=== PATIENT | female | born 1995 | race Hispanic/Latino ===

== ENCOUNTER 2018-06-06 00:37 | Emergency (ER) | payer BC | END 2018-06-06 02:52 | disposition home or self-care (01) | LOC: ERS 00:37 | DX: H60.91 Unspecified otitis externa, right ear (principal); F41.9 Anxiety disorder, unspecified | CPT/HCPCS: 99283 ==

== ENCOUNTER 2020-04-02 20:11 | Emergency (ER) | payer BC, SELFPAY ==
[2020-04-02] MEDS ORDERED: Acetaminophen 500 MG TAB ONE (20:27)
[2020-04-02] MEDS ORDERED: Ondansetron PF 4 MG/2 ML Vial ONE (20:27)
[2020-04-02] MEDS ORDERED: Acetaminophen 325 MG/10.15 ML UDCUP ONE (20:48)
[2020-04-02 20:49] LABS: #Basophils 0.1 thou/uL (0.0-0.2); #Eosinphils 0.1 thou/uL (0.0-0.7); #Lymphocytes 3.2 thou/uL (1.20-3.40); #Monocytes 0.9 thou/uL (0.11-0.59); #Neutrophils 9.4 thou/uL (1.40-6.50); %Basophils 0.5 % (0.0-1.0); %Eosinophils 0.5 % (0.0-10.0); %Lymphocytes 23.2 % (21.0-51.0); %Monocytes 6.6 % (0.0-10.0); %Neutrophils 69.2 % (42.0-75.0); Hemoglobin 13.2 g/dL (12.0-16.0); Mean Corpuscular HGB CONC 32.7 g/dL (32.0-36.0); Mean Corpuscular Hemoglobin 27.3 pg (27.0-31.0); Mean Corpuscular Volume 83.3 fL (78.0-98.0); Platelet Count 320 thou/uL (130-400); Red Blood Cell (RBC) Count 4.83 mill/uL (4.20-5.40); White Blood Cell (WBC) Count 13.6 thou/uL (4.8-10.8)
[2020-04-02 21:17] LABS: ALT (SGPT) 14 U/L (8-55); AST (SGOT) 25 U/L (5-34); Albumin 4.3 g/dL (3.5-5.0); Alkaline Phosphatase 68 U/L (40-110); Anion Gap 15 mmol/L (10-20); BUN (Urea Nitrogen) 9 mg/dL (7.0-18.7); Bilirubin, Total 0.4 mg/dL (0.2-1.2); Calc. Creatinine Clearance 0 mL/min (70-130); Calcium 9.1 mg/dL (7.8-10.44); Carbon Dioxide 20 mmol/L (22-29); Chloride 106 mmol/L (98-107); Estimated GFR-MDRD 77; Globulin 4.2 g/dL (2.4-3.5); Glucose 93 mg/dL (70-105); Potassium 4.3 mmol/L (3.5-5.1); Protein, Total 8.5 g/dL (6.0-8.3); Sodium 137 mmol/L (136-145)
[2020-04-02 22:26] LABS: Bilirubin Negative (Negative); Blood, Urine Trace (Negative); Glucose, Urine (Dipstick) Negative (Negative); Leukocyte Small (Negative); Nitrite Negative (Negative); Protein, Urine (Dipstick) Negative (Neg-Trace); Urobilinogen 0.2 mg/dL (Less than 2)
[2020-04-02 22:30] LABS: Clarity Hazy (Clear); RBC/HPF 0-3 HPF (0-3); Squamous Epithelial 0-3 HPF (0-3)
[2020-04-02 22:31] LABS: Bacteria/HPF 2+ HPF (None Seen)
[2020-04-02] MEDS ORDERED: Ketorolac Tromethamine 30 MG/ML VIAL ONE (22:31)
[2020-04-02 22:32] LABS: Pregnancy Test - Urine (BHCG) Negative (Negative); Pregu Control Background? CLEAR/WHITE (CLR/WHITE); Pregu Control Bar Appear? YES (CONTROL BAR); Specific Gravity 1.015 (1.002-1.036)
== END 2020-04-02 23:05 | disposition home or self-care (01) ==
LOC: ERS 20:11
DX: M79.10 Myalgia, unspecified site (principal); G51.0 Bell's palsy; F43.9 Reaction to severe stress, unspecified; F41.9 Anxiety disorder, unspecified; D64.9 Anemia, unspecified; Z79.899 Other long term (current) drug therapy
CPT/HCPCS: 80053; 81003; 81015; 81025; 85025; 96374; J1885; J2405

== ENCOUNTER 2023-04-05 18:28 | Inpatient (IN) | payer OTHER, SELFPAY ==
[2023-04-05] MEDS ORDERED: Boostrix 0.5 ML (Tdap) VIAL (>/=7 yrs of age) ONE (18:55)
[2023-04-05] MEDS ORDERED: Ketorolac Tromethamine 30 MG/ML VIAL ONE ×2 (18:55→20:37)
[2023-04-05] MEDS ORDERED: LORazepam 2 MG/ML SYR.(CARPUJECT) ONE (19:51)
[2023-04-05] MEDS ORDERED: Ondansetron PF 4 MG/2 ML Vial ONE ×2 (19:51→20:37)
[2023-04-05] MEDS ORDERED: CEFAZOLIN 1 GM VIAL ONE (19:51)
[2023-04-05] MEDS ORDERED: Morphine 2 MG/ML VIAL ONE (19:51)
[2023-04-05] MEDS ORDERED: Bupivacaine PF 0.5% 30 ML VIAL ONE (19:54)
[2023-04-05] MEDS ORDERED: Vancomycin 1 GM VIAL ONE (19:54)
[2023-04-05] MEDS ORDERED: Bacitracin Zinc Ointment 30 gm TUBE ONE (19:54)
[2023-04-05] MEDS ORDERED: fentaNYL PF 100 MCG/2 ML SYRINGE ONE (19:56)
[2023-04-05 20:25] LABS: #Monocytes 0.8 thou/uL (0.11-0.59); #Neutrophils 13.5 thou/uL (1.40-6.50); %Basophils 0.2 % (0.0-1.0); %Eosinophils 0.2 % (0.0-10.0); %Lymphocytes 13.3 % (21.0-51.0); %Monocytes 4.9 % (0.0-10.0); %Neutrophils 80.9 % (42.0-75.0); Hemoglobin 13.5 g/dL (12.0-16.0); Mean Corpuscular HGB CONC 32.4 g/dL (32.0-36.0); Mean Corpuscular Hemoglobin 27.4 pg (27.0-31.0); Mean Corpuscular Volume 84.6 fl (78.0-98.0); Mean Platelet Volume 10.1 fL (7.4-10.4); Platelet Count 391 10x3/uL (130-400); RBC Distribution Width 13.4 % (11.5-14.5); Red Blood Cell (RBC) Count 4.93 mill/uL (4.20-5.40); White Blood Cell (WBC) Count 16.7 10x3/uL (4.8-10.8)
[2023-04-05] MEDS ORDERED: Ondansetron PF 4 MG/2 ML Vial IVP PRN (20:35)
[2023-04-05] MEDS ORDERED: Milk Of Magnesia 30 ML UDCUP PO PRN (20:35)
[2023-04-05] MEDS ORDERED: HYDROcodone/Acetaminophen 5/325 mg Tablet PO PRN (20:35)
[2023-04-05] MEDS ORDERED: TETANUS, DIPHTHERIA TOX,ADULT (TDVAX) 0.5 ML VIAL IM ONE (20:35)
[2023-04-05] MEDS ORDERED: Rocuronium Bromide 10 MG/ML (10ML VIAL) ONE (20:37)
[2023-04-05] MEDS ORDERED: PROPOFOL 200 MG/20 ML VIAL ONE (20:37)
[2023-04-05] MEDS ORDERED: Dexamethasone 20 MG/5 ML VIAL ONE (20:37)
[2023-04-05] MEDS ORDERED: Succinylcholine Chloride 100 MG/5 ML SYRINGE FS ONE (20:37)
[2023-04-05 20:38] LABS: PTT 28.8 sec (22.9-36.1); Prothrombin Time 13.3 sec (12.0-14.7)
[2023-04-05] MEDS ORDERED: Meperidine HCl/PF 25 MG/ML VIAL IM PRN (20:41)
[2023-04-05 20:42] LABS: BHCG - Serum Negative (NEGATIVE); Pregs Control Background? CLEAR/WHITE (CLR/WHITE); Pregs Control Bar Appear? YES (CONTROL BAR)
[2023-04-05] MEDS ORDERED: Communication Order-Pharmacy FS PRN (20:45)
[2023-04-05] MEDS ORDERED: fentaNYL 50 mcg/mL 1 mL Vial SLOW IVP PRN (20:47)
[2023-04-05] MEDS ORDERED: Vancomycin 1 GM in Premix Bag 1 BAG IVPB SCH (21:00)
[2023-04-05 21:13] LABS: ALT (SGPT) 15 U/L (8-55); AST (SGOT) 16 U/L (5-34); Albumin 4.5 g/dL (3.5-5.0); Alkaline Phosphatase 68 U/L (40-110); Anion Gap 20 mmol/L (10-20); BUN (Urea Nitrogen) 15 mg/dL (7.0-18.7); Bilirubin, Total 0.3 mg/dL (0.2-1.2); Calc. Creatinine Clearance 0 mL/min (70-130); Calcium 9.6 mg/dL (7.8-10.44); Carbon Dioxide 18 mmol/L (22-29); Chloride 105 mmol/L (98-107); Estimated GFR 60; Glucose 132 mg/dL (70-105); Potassium 3.7 mmol/L (3.5-5.1); Protein, Total 8.5 g/dL (6.0-8.3); Sodium 139 mmol/L (136-145)
[2023-04-05] MEDS ORDERED: fentaNYL 50 mcg/mL 1 mL Vial ONE (22:49)
[2023-04-05] MEDS ORDERED: Promethazine HCl 25 MG/ML VIAL IM PRN (23:49)
[2023-04-05] MEDS ORDERED: Ondansetron HCl/PF 4 MG/2 ML Vial IVP PRN (23:49)
[2023-04-06 00:55] VITALS: BMI 34.0
[2023-04-06] MEDS: VANCOMYCIN 1.25 GM/250 ML BAG 1.25 GM in Premix Bag 1 BAG IVPB SCH ×2 (02:00→15:17)
[2023-04-06] MEDS: Gentamicin 80 MG/2 ML VIAL IM SCH ×2 (03:37→11:44)
[2023-04-06] MEDS: Morphine 4 MG/ML VIAL SLOW IVP PRN ×2 (03:46→09:38)
[2023-04-06] MEDS: Ketorolac Tromethamine 30 MG/ML VIAL IVP SCH ×4 (06:39→23:39)
[2023-04-06] MEDS: Aspirin 81 mg Enteric Coated Tablet PO SCH ×2 (09:39→21:12)
[2023-04-06] MEDS: traMADol HCl 50 MG TAB PO PRN ×2 (09:51→15:13)
[2023-04-06] MEDS: Gentamicin Sulfate 80 MG in Premix Bag 1 BAG IVPB SCH (18:20)
[2023-04-06] MEDS: Acetaminophen 325 MG TAB PO PRN (23:40)
[2023-04-07] MEDS: Gentamicin Sulfate 80 MG in Premix Bag 1 BAG IVPB SCH ×2 (01:35→09:12)
[2023-04-07] MEDS: VANCOMYCIN 1.25 GM/250 ML BAG 1.25 GM in Premix Bag 1 BAG IVPB SCH (01:36)
[2023-04-07] MEDS: Ketorolac Tromethamine 30 MG/ML VIAL IVP SCH (07:22)
[2023-04-07] MEDS: Aspirin 81 mg Enteric Coated Tablet PO SCH ×2 (07:22→09:12)
[2023-04-07] MEDS: Acetaminophen 325 MG TAB PO PRN (09:12)
[2023-04-07 12:13] VITALS: BP 105/68; TEMP 98
== END 2023-04-07 16:02 | disposition home or self-care (01) | DRG 513 ==
LOC: ERS 18:28 → SURG B 04-06 00:31
PROVIDERS: ADMIT Orthopaedic Surgery Hand Surgery; ATTEND Orthopaedic Surgery Hand Surgery
PROC: 0PSV04Z Reposition Left Finger Phalanx with Internal Fixation Device, Open Approach (ICD-10-PCS; principal; 2023-04-05)
PROC: 0PSV34Z Reposition Left Finger Phalanx with Internal Fixation Device, Percutaneous Approach (ICD-10-PCS; 2023-04-05)
PROC: 01Q60ZZ Repair Radial Nerve, Open Approach (ICD-10-PCS; 2023-04-05)
PROC: 01Q40ZZ Repair Ulnar Nerve, Open Approach (ICD-10-PCS; 2023-04-05)
DX: S62.397A Other fracture of fifth metacarpal bone, left hand, initial encounter for closed fracture (principal); S62.615B Displaced fracture of proximal phalanx of left ring finger, initial encounter for open fracture; S64.496A Injury of digital nerve of right little finger, initial encounter; V40.5XXA Car driver injured in collision with pedestrian or animal in traffic accident, initial encounter; Z88.0 Allergy status to penicillin; Z90.89 Acquired absence of other organs; F41.9 Anxiety disorder, unspecified
CPT/HCPCS: 36415; 72040; 80053; 80202; 84703; 85025; 85610; 85730; 86850; 86900; 86901; 90471; 90715; 96372; 96374; 96375; C1713; G0390; J0690; J1100; J1580; J1885; J2060; J2270; J2272; J2405; J2704; J3010; J3370; S0020

== ENCOUNTER 2024-05-27 15:58 | Outpatient (CLI) | payer OTHER | END 2024-05-27 15:59 | disposition home or self-care (01) | LOC: BICRAD 15:58 | PROVIDERS: ATTEND Family Medicine | DX: R05.9 Cough, unspecified (principal) | CPT/HCPCS: 71046 ==